=== PATIENT | male | born 1965 | race American Indian/Alaskan Native ===

== ENCOUNTER → 2025-01-27 | Outpatient (CLI) | payer OTHER, SELFPAY ==
--- NOTE | 2025-01-27 10:14 | XR_ITS ---
Examination: PA lateral chest 2 views TECHNIQUE: Upright PA lateral chest 2 views Date and time: January 27, 2025 1025 hours INDICATIONS: Coughing one month. FINDINGS: Extensive bilateral parenchymal disease with possible cavity in the right upper lobe Normal heart size Prominent osteopenia Scarring at the left lateral costophrenic angle IMPRESSION: Extensive bilateral pneumonia which appears cavitary right upper lobe Consider CT chest without intravenous contrast follow-up
--- NOTE | 2025-01-27 10:14 | XR_ITS ---
EXAMINATION: Ankle, left 3 views . Technique: Ankle AP, oblique, lateral 3 views Date and time of exam: January 27, 2025 1021 hours INDICATIONS: Left ankle pain 2 months, ankle surgery 8 years ago. 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
[2025-01-27 10:53] LABS: Quantiferon-TB* See Sep Rpt
[2025-01-27 11:45] LABS: Alanine Aminotransferase 9 U/L (10-49); Aspartate Amino Transferase 12 U/L (0-34); C-Reactive Protein 11.6 mg/dL (0.0-0.9); Creatinine (Component) 1.2 mg/dL (0.6-1.3); Free T3 2.0 pg/mL (2.3-4.2); Free T4 (Free Thyroxine) 1.04 ng/dL (0.89-1.76); Thyroid Stimulating Hormone 0.83 uIU/mL (0.55-4.78); Uric Acid 4.2 mg/dL (3.7-9.2); eGFR > 60 See Note
[2025-01-27 12:12] LABS: Hepatitis A Antibody IgM Non Reactive (Non React); Hepatitis B Core Antibody IgM Non Reactive (Non React); Hepatitis B Surface Antigen Non Reactive (Non React); Hepatitis C Antibody Non Reactive (Non React)
[2025-01-27 12:24] LABS: Creatinine,Random Urine < 13 mg/dL (30-125); Protein Total, Random Urine < 6 mg/dL (1-14)
[2025-01-27 13:11] LABS: Cocci Serology, IgM Negative (Negative)
[2025-01-28 07:21] LABS: Cocci Serology, IgG Positive (Negative)
[2025-01-28 07:22] LABS: Cocid Sro, CF/ID (UCD) NO CHG* See Sep Rpt
[2025-02-01 06:32] LABS: Complement Component C3* 182 mg/dL (82-185); Complement Component C4c* 18 mg/dL (15-53); DNA (ds) Antibody* 2 IU/mL; HLA-B27 Antigen* NEGATIVE (NEGATIVE); Parvovirus B19 Ab IgG 0.6; Parvovirus B19 Ab IgM <0.1; Thyroid Peroxidase Antibodies* <1 IU/mL (<9)
== END | disposition home or self-care (01) ==
PROVIDERS: PCP Physician Assistant; Referring Provider Physician Assistant; Visit Provider Physician Assistant
DX: M19.072 Primary osteoarthritis, left ankle and foot (principal); J18.9 Pneumonia, unspecified organism
CPT/HCPCS: 36415; 71046; 73610; 80074; 82565; 82570; 84156; 84439; 84443; 84450; 84460; 84481; 84550; 86140; 86160; 86225; 86331; 86376; 86480; 86635; 86747; 86812